=== PATIENT | female | born 1970 | race Caucasian/White ===

== ENCOUNTER 2022-12-27 16:57 | Emergency (ER) | payer MEDICAID ==
[~2022-12-27] VITALS: Ht 157.5 cm; Wt 84.5 kg
[2022-12-27 20:08] VITALS: BP 151/89
[2022-12-27 20:55] LABS: BASOPHILS # (AUTO) 0.1 X10'3 (0-0.2); BASOPHILS % (AUTO) 0.8 % (0-1); EOSINOPHILS # (AUTO) 0.5 X10'3 (0-0.9); EOSINOPHILS % (AUTO) 5.7 % (0-6); HEMATOCRIT 35.8 % (35.0-45.0); HEMOGLOBIN 11.5 g/dl (12.0-16.0); LYMPHOCYTES # (AUTO) 1.8 X10'3 (1.1-4.8); LYMPHOCYTES % (AUTO) 20.5 % (21-51); MEAN CORPUSCULAR HEMOGLOBIN 26.4 PG (27.0-31.0); MEAN CORPUSCULAR HGB CONC 32.2 g/dL (33.0-36.5); MEAN CORPUSCULAR VOLUME 81.9 FL (78-98); MEAN PLATELET VOLUME 6.9 FL (7.4-10.4); MONOCYTES # (AUTO) 0.6 X10'3 (0-0.9); NEUTROPHILS # (AUTO) 5.8 X10'3 (1.8-7.7); PLATELET COUNT 299 X10'3 (140-440); RED BLOOD COUNT 4.37 X10'6 (4.20-5.60); RED CELL DISTRIBUTION WIDTH 16.3 % (11.5-14.5); WHITE BLOOD COUNT 8.7 X10'3 (4.5-11.0)
[2022-12-27] MEDS ORDERED: normal saline 1000ML IV soln IVB ONE (20:55)
[2022-12-27 21:07] LABS: ALANINE AMINOTRANSFERASE 29 U/L (12-78); ALBUMIN 3.6 G/DL (3.4-5.0); ALBUMIN/GLOBULIN RATIO 1.2 (1.1-1.5); ALKALINE PHOSPHATASE 97 IU/L (46-116); ANION GAP 4 (8-16); ASPARTATE AMINO TRANSFERASE 17 U/L (10-37); BILIRUBIN,TOTAL 0.1 MG/DL (0.1-1.0); BLOOD UREA NITROGEN 5 MG/DL (7-18); CALCIUM 9.5 MG/DL (8.5-10.1); CHLORIDE 104 MMOL/L (99-107); CREATININE 0.71 MG/DL (0.40-0.90); GLUCOSE 95 MG/DL (70-104); POTASSIUM 4.1 MMOL/L (3.5-5.1); SODIUM 141 MMOL/L (135-145); TOTAL CARBON DIOXIDE 33.3 MMOL/L (24-32); TOTAL PROTEIN 6.7 G/DL (6.4-8.2); eGFR 87 ML/MIN
[2022-12-27 21:56] LABS: CLARITY,URINE CLEAR (Clear); COLOR,URINE STRAW (Yellow); GLUCOSE, URINE NEGATIVE (Neg); KETONES,URINE NEGATIVE (Neg); LEUKOCYTE ESTERASE ,URINE NEGATIVE (Neg); NITRITES, URINE NEGATIVE (Neg); OCCULT BLOOD,URINE NEGATIVE (Neg); PH,URINE 6.5 (4.8-8.0); PROTEIN,URINE NEGATIVE (Neg); UROBILINOGEN,URINE 0.2 E.U/dL (0.2-1.0)
[2022-12-27 22:01] LABS: UA COLLECTION TYPE CLN CATCH MIDSTREAM
[2022-12-27] MEDS ORDERED: acetaminophen 325mg tablet PO ONE (22:05)
[2022-12-27] MEDS ORDERED: GABA600T13 PO (22:05)
[2022-12-27] MEDS ORDERED: TRIA16.911 BOTHNARES (22:05)
[2022-12-27] MEDS ORDERED: CETI10TA14 PO (22:05)
[2022-12-27] MEDS ORDERED: BUPR300T86 PO (22:05)
[2022-12-27] MEDS ORDERED: DESV50TA20 PO (22:05)
[2022-12-27] MEDS ORDERED: TRAZ-256 PO (22:05)
[2022-12-27] MEDS ORDERED: BACL20TA PO ×2 (22:05→22:49)
[2022-12-27] MEDS ORDERED: HYDR50CA5 PO ×2 (22:05→22:49)
[2022-12-27] MEDS ORDERED: VALB80CA PO ×2 (22:05→22:49)
[2022-12-27] MEDS ORDERED: METO-411 PO (22:05)
[2022-12-27] MEDS ORDERED: MAGN400T39 PO (22:09)
[2022-12-27] MEDS ORDERED: POTA2TAB6 PO (22:09)
--- NOTE | 2022-12-27 23:38 | NUR ---
IV DC'D PT BEING DISCHARGED. DRESSING APPLIED
== END 2022-12-27 23:40 | disposition home or self-care (01) ==
LOC: ER 16:58
DX: R53.83 Other fatigue (principal); Z76.0 Encounter for issue of repeat prescription; R20.2 Paresthesia of skin; Z88.1 Allergy status to other antibiotic agents; Z88.8 Allergy status to other drugs, medicaments and biological substances
CPT/HCPCS: 36415; 80053; 81003; 84443; 85025; 96360; 99283; J7030